=== PATIENT | female | born 1990 | race Caucasian/White ===

== ENCOUNTER → 2016-06-25 | Outpatient (CLI) | payer OTHER ==
--- NOTE | 2016-06-25 13:19 | REP ---
RIGHT HIP: TWO VIEWS. History: Pain in the right hip joint. Findings: AP and frog-leg views of the right hip demonstrate smooth rounded femoral head and intact hip joint space. Periarticular soft tissues are unremarkable. An IUD is noted in the pelvis. Impression: Negative right hip series. Signed by Vel Ruiz MD 06/25/2016 03:59 P
== END | disposition home or self-care (01) ==
LOC: M LRY 11:57
PROVIDERS: ATTEND Family Medicine
DX: M25.551 Pain in right hip (principal)
CPT/HCPCS: 73502; G0463

== ENCOUNTER → 2016-06-28 | Outpatient (CLI) | payer OTHER ==
--- NOTE | 2016-06-28 17:21 | REP ---
MRI of the right hip without contrast 06/28/2016 Indication: Right hip pain; no known injury Comparison: Right hip series 06/25/2016 Findings: Sagittal and coronal T2-weighted images with fat saturation were obtained of the right hip without contrast. Coronal T1 and STIR images were obtained of the hips bilaterally including majority of the pelvis. Findings: The hips are symmetric in appearance bilaterally without acute fracture, subluxation, or dislocation. There is no visualized hip joint effusion. The articular surfaces within the hips are smooth and there are no labral irregularities appreciated. There is no evidence of tendonitis or soft tissue edema at the insertion site on the greater trochanter of the right hip or in the contralateral left hip The visualized portions of the pelvis to include SI joints, the left hip, and the symphysis pubis are intact. Visualized portions of the uterus, adnexa are within normal limits. There are small bilateral ovarian follicles. The - unremarkable in appearance Impression: Negative MRI of the right hip Signed by Shanell Nickerson MD 06/28/2016 05:12 P
== END | disposition home or self-care (01) ==
LOC: M RAD 12:15
PROVIDERS: ATTEND Family Medicine
DX: M25.551 Pain in right hip (principal)

== ENCOUNTER → 2016-10-04 | Outpatient (REF) | payer OTHER | LOC: M SFHCLERA 09:13 | PROVIDERS: ATTEND Family Medicine | DX: N89.8 Other specified noninflammatory disorders of vagina (principal) | CPT/HCPCS: 87491; 87591; G0463 ==

== ENCOUNTER → 2016-10-22 | Outpatient (CLI) | payer OTHER ==
--- NOTE | 2016-10-22 15:28 | REP ---
MRI LUMBAR SPINE WITHOUT CONTRAST: HISTORY: Low back pain radiating into the right hip. Radiculopathy. TECHNIQUE: Sagittal and axial T1 and T2-weighted scans are acquired in the usual fashion with and without fat saturation. Sequences include spin echo, turbo spin-echo, and STIR imaging sequences. MRI FINDINGS: Lumbar vertebral body heights are preserved and alignment is normal. No extra vertebral abnormality is seen. Conus medullaris terminates at L1 and is unremarkable in appearance. Disc spaces are maintained in height and signal intensity. No disc herniation is seen on either side or any level. Pedicles and posterior elements are intact. There is no evidence of spondylolysis or spondylolisthesis. IMPRESSION: Normal MRI study of the lumbar spine without contrast. Signed by Vel Ruiz MD 10/22/2016 03:44 P
== END ==
LOC: M PLARAD 11:14
PROVIDERS: ATTEND Orthopaedic Surgery
DX: M54.16 Radiculopathy, lumbar region (principal)

== ENCOUNTER → 2016-12-06 | Outpatient (REF) | payer OTHER | LOC: M SFHCLERA 18:39 | PROVIDERS: ATTEND Nurse Practitioner Family | DX: R10.9 Unspecified abdominal pain (principal) ==

== ENCOUNTER → 2017-11-05 | Outpatient (REF) | payer OTHER ==
[2017-11-05 17:14] LABS: HEMATOCRIT 39.6 % (36.0-47.0); HEMOGLOBIN 13.4 g/dl (12.0-15.5); MEAN CORPUSCULAR HEMOGLOBIN 31.4 pg (27.0-33.0); MEAN CORPUSCULAR HGB CONC 33.8 g/dl (32.0-36.5); MEAN CORPUSCULAR VOLUME 92.7 fl (80.0-96.0); PLATELET COUNT, AUTOMATED 144 10^3/uL (150-450); RED BLOOD COUNT 4.27 10^6/uL (4.00-5.40); RED CELL DISTRIBUTION WIDTH 12.6 % (11.5-14.5)
[2017-11-05 17:23] LABS: THYROID STIMULATING HORMONE 0.861 uIU/ML (0.358-3.740)
== END ==
LOC: M SFHCLERA 13:51
DX: R68.82 Decreased libido (principal)

== ENCOUNTER 2017-12-05 14:44 | Emergency (ER) | payer OTHER | END 2017-12-05 17:13 | disposition home or self-care (01) | LOC: M ED 14:44 | DX: M25.552 Pain in left hip (principal); M70.72 Other bursitis of hip, left hip; M70.71 Other bursitis of hip, right hip; G43.909 Migraine, unspecified, not intractable, without status migrainosus; F32.9 Major depressive disorder, single episode, unspecified; F41.9 Anxiety disorder, unspecified; Z87.891 Personal history of nicotine dependence; Z88.0 Allergy status to penicillin | CPT/HCPCS: 99283 ==

== ENCOUNTER → 2018-08-11 | Outpatient (REF) | payer OTHER ==
[~2018-08-11] MED LIST: NAPR-885 PO; NORCOTAB PO; PRED20TA PO
== END ==
LOC: M LAB REF 16:36
PROVIDERS: ATTEND Nurse Practitioner Women's Health
DX: Z34.83 Encounter for supervision of other normal pregnancy, third trimester (principal); Z3A.00 Weeks of gestation of pregnancy not specified

== ENCOUNTER → 2019-03-04 | Outpatient (CLI) | payer OTHER ==
[~2019-03-04] MED LIST changes: +HYDR-3715 PO; -NORCOTAB PO
--- NOTE | 2019-03-04 14:10 | REP ---
REASON: Pain. COMPARISON: None. FINDINGS: Three views of the thoracic spine were obtained. The disc spaces are symmetric and relatively well maintained. There is no acute fracture or destructive osseous lesion. Electronically Signed by Stoney Talavera DO 03/04/2019 02:21 P
--- NOTE | 2019-03-04 14:34 | REP ---
REASON: Acute back pain. COMPARISON: None. FINDINGS: Five views of the lumbosacral spine show no acute fracture, dislocation or subluxation. The intervertebral disc spaces are symmetric and well maintained. There is no spondylolisthesis. The pedicles are intact bilaterally and there is no destructive osseous lesions. There is a T shaped radiodensity in the pelvis consistent with an IUD. IMPRESSION: Unremarkable lumbosacral spine series. Electronically Signed by Stoney Talavera DO 03/04/2019 04:29 P
== END ==
LOC: M LRY 13:20
PROVIDERS: ATTEND Physician Assistant
DX: M54.5 Low back pain (principal); M54.6 Pain in thoracic spine
CPT/HCPCS: 72072; 72110; G0463

== ENCOUNTER → 2019-07-23 | Outpatient (REF) | payer OTHER ==
[2019-07-23 20:07] LABS: CHLAMYDIA DNA AMPLIFICATION NEGATIVE (NEGATIVE); GC DNA AMPLIFICATION NEGATIVE (NEGATIVE)
[2019-07-24 11:32] LABS: HIV 1&2 SCREEN CENTAUR NEGATIVE (NEGATIVE)
== END ==
LOC: M SFHCLERA 11:13
PROVIDERS: ATTEND Family Medicine
DX: Z11.3 Encounter for screening for infections with a predominantly sexual mode of transmission (principal)
CPT/HCPCS: 81002; 81025; 86780; 87086; 87389; 87491; 87591; G0463

== ENCOUNTER → 2019-07-27 | Outpatient (CLI) | payer OTHER ==
--- NOTE | 2019-07-27 11:01 | REP ---
Clinical: Pelvic pain. Technique: Transabdominal pelvic ultrasound followed by transvaginal examination for better evaluation of the endometrium and adnexa with color Doppler evaluation of the ovaries. Findings: Bladder is normal and measures 5.6 x 2.1 x 7.9 cm. Heterogeneous anteverted uterus measures 8.8 x 4.4 x 6.0 cm. Small amount of endocervical fluid is appreciated and IUD is identified in central, satisfactory position. Endometrial complex measures 10 mm thickness excluding fluid. Bilateral ovaries are normal in appearance and vascularity without torsion. Right ovary measures 2.8 x 1.6 x 1.8 cm (RI 0.35). Left ovary measures 4.0 x 2.4 x 3.3 cm (RI 0.34) and includes 1.7 cm involuting follicle. No pelvic free fluid or adnexal mass lesion. Impression: Essentially normal pelvic ultrasound as described above. IUD in satisfactory position. Trace endocervical fluid nonspecific. Involuting left ovarian follicle. Electronically Signed by Hussein Villalobos MD 07/27/2019 10:52 A
== END ==
LOC: M LRY 08:29
PROVIDERS: ATTEND Family Medicine
DX: R10.2 Pelvic and perineal pain (principal)

== ENCOUNTER → 2020-05-14 | Outpatient (CLI) | payer OTHER ==
[~2020-05-14] MED LIST changes: +MAXA10TA14 PO; +PROP20TA72 PO
== END ==
LOC: M LABSMTC 10:06
PROVIDERS: ATTEND Anesthesiology
DX: Z01.812 Encounter for preprocedural laboratory examination (principal); Z20.828 Contact with and (suspected) exposure to other viral communicable diseases

== ENCOUNTER 2020-05-18 08:06 | Day surgery (SDC) | payer OTHER ==
[~2020-05-18] VITALS: Ht 157.5 cm; Wt 75.7 kg
[~2020-05-18 08:06] MED LIST changes: +LR 1,000 ML IV SCH
[2020-05-18 08:34] LABS: HEMATOCRIT 40.4 % (36.0-47.0); HEMOGLOBIN 12.9 g/dl (12.0-15.5); MEAN CORPUSCULAR HEMOGLOBIN 30.2 pg (27.0-33.0); MEAN CORPUSCULAR HGB CONC 31.9 g/dl (32.0-36.5); MEAN CORPUSCULAR VOLUME 94.6 fl (80.0-96.0); PLATELET COUNT, AUTOMATED 189 10^3/uL (150-450); RED BLOOD COUNT 4.27 10^6/uL (4.00-5.40); WHITE BLOOD COUNT 4.7 10^3/uL (4.0-10.0)
[2020-05-18] MEDS ORDERED: propofoL 200 MG/20 ML VIAL As Ordered ONE (08:45)
[2020-05-18] MEDS ORDERED: LIDOCAINE 2% 100MG/5ML SDV (FOR ANES.) As Ordered ONE (08:45)
[2020-05-18] MEDS ORDERED: dexameTHASONE 4 MG/ML 1ML VIAL (J1100 PER 1MG) As Ordered ONE (08:45)
[2020-05-18] MEDS ORDERED: ROCURONIUM BROMIDE 50 MG/5 ML VIAL As Ordered ONE (08:45)
[2020-05-18] MEDS ORDERED: ONDANSETRON 4MG/2ML VIAL As Ordered ONE ×2 (08:45→12:46)
[2020-05-18] MEDS ORDERED: MIDAZOLAM INJ 2MG/2ML VIAL (J2250 PER 1MG) As Ordered ONE (08:46)
[2020-05-18] MEDS ORDERED: fentaNYL 100 MCG/2 ML INJECTION (J3010) As Ordered ONE (08:46)
[2020-05-18] MEDS ORDERED: BUPIVACAINE HCL 0.25% 10ML VIAL As Ordered ONE (09:01)
[2020-05-18 09:06] LABS: HCG, SERUM QUALITATIVE NEGATIVE (NEGATIVE)
[2020-05-18] MEDS ORDERED: SUGAMMADEX SODIUM 500 MG/5 ML VIAL (BRIDION) As Ordered ONE (10:01)
[2020-05-18] MEDS ORDERED: ACETAMINOPHEN 1000MG 100ML IV BTL (OFIRMEV) (J0131 PER 10MG) As Ordered ONE (10:01)
[2020-05-18] MEDS ORDERED: HYDROmorphone HCL 2 MG/ML 1ML VIAL (J1170) As Ordered ONE (10:01)
[2020-05-18] MEDS ORDERED: KETOROLAC 60MG 2ML VIAL As Ordered ONE (10:14)
--- NOTE | 2020-05-18 11:00 | ROOPDOC ---
[facility] Report Of Operation Report of Operation Date of procedure: 05/18/2020 Preoperative diagnosis: Satisfied parity. Postoperative diagnosis: Same Procedure: Laparoscopic bilateral salpingectomy, IUD removal Anesthesia: Gen. endotracheal Estimated blood loss 5 mL IV fluids replaced 600 mL lactated Ringer's Drains: In and out catheter 100 mL of urine Complications: None Preoperative antibiotics: None indicated Specimens: Bilateral fallopian tubes Intraoperative findings: Normal size, shape, contour of the uterus. Normal adnexa/ovaries bilaterally. Minimal pelvic adhesions Procedure: The patient was counseled and consented on the risks, benefits, indications, and alternatives of the procedure. Informed consent was obtained. She was taken to the operating room with an IV running. She was placed on the operating table in the dorsal supine position. Gen. anesthesia was administered and the airway was secured without any difficulty. A timeout was performed per protocol. She was prepared and draped in the normal sterile fashion. Attention was turned to the pelvis. The bladder was drained with in and out sterile catheter. A speculum was placed into the vagina with good visualization of the cervix. The IUD was removed with Kennedi forceps without any difficulty, the IUD was intact. A single-tooth tenaculum was placed on the anterior lip of the cervix and downward traction was applied. The cervix was sequentially dilated with Gaetano dilators up to a #16. A ZUMI uterine manipulator was placed without any difficulty. The single-tooth tenaculum was removed. The tenaculum sites were noted to be hemostatic. A sterile glove switch was performed. Attention was turned to the abdomen. A 5mm umbilical incision was made with the 11 blade. Through this incision, a Veress needle was placed into the intraperitoneal cavity. Intraperitoneal placement was confirmed with ease of flow of normal saline, a positive drop test and no return on aspiration. The opening pressure was 2 mmHg. The abdomen was insufflated with 2 L of CO2. The Veress needle was removed. A 5 mm laparoscopic trocar was placed under direct visualization without any difficulty, and intraperitoneal placement was confirmed. No incidental bleeding or injury was evident. The patient was placed in [facility]. 2 additional laparoscopic port sites were placed through 5 mm incisions in the lower left quadrant. Each trocar/cannula was placed under direct visualization without any difficulty, incidental bleeding or injury. Attention was turned to the right fallopian tube. The right fallopian tube was followed out to the fimbriated end, grasped and elevated. The underlying m esosalpinx was sequentially clamped, coagulated and transected, until the level of the cornu was reached. At this level, the fallopian tube was clamped, coagulated and transected, thus amputating the fallopian tube. The fallopian tube was brought through the cannula without any difficulty and sent to pathology for permanent section. Attention was turned to the left fallopian tube. The left fallopian tube was followed out to the fimbriated end, grasped and elevated. The underlying mesosalpinx was sequentially clamped, coagulated and transected, until the level of the cornu was reached. At this level the fallopian tube was clamped, coagulated and transected, thus amputating the fallopian tube. The fallopian tube was brought to the cannula without any difficulty and sent to pathology for permanent section. Both right and left surgical sites were noted to be completely hemostatic. The gas was released from the abdomen. The patient was taken out of Trendelenburg position. The cannulas were removed. The skin incisions were closed with 4-0 Monocryl in subcuticular fashion and reinforced with Dermabond. The uterine manipulator was removed, the vagina was noted to be clear of any sponge or instrument. Sponge, needle and instrument counts were correct per protocol. The patient tolerated the entire procedure very well. She was transferred to the PACU in good and stable condition. DO IRAM Arreguin JONATHAN R. DO May 18, 2020 11:00
[2020-05-18] MEDS ORDERED: PERC5TAB12 PO (11:01)
[2020-05-18] MEDS ORDERED: IBUP80TA PO (11:03)
[2020-05-18] MEDS ORDERED: LR 1,000 ML IV SCH ×2 (11:30)
[2020-05-18] MEDS ORDERED: fentaNYL 100 MCG/2 ML INJECTION (J3010) IV PRN (11:30)
[2020-05-18] MEDS ORDERED: oxyCODONE 5MG TAB PO PRN (11:30)
[2020-05-18] MEDS ORDERED: ONDANSETRON 4MG/2ML VIAL IV PRN (11:30)
[2020-05-18 13:55] VITALS: BP 124/85
== END 2020-05-18 14:47 | disposition home or self-care (01) ==
LOC: M SDC 08:06
PROVIDERS: ATTEND Obstetrics & Gynecology
DX: Z30.2 Encounter for sterilization (principal); K21.9 Gastro-esophageal reflux disease without esophagitis; Z79.899 Other long term (current) drug therapy; Z88.0 Allergy status to penicillin; K66.0 Peritoneal adhesions (postprocedural) (postinfection)
CPT/HCPCS: 36415; 58301; 58661; 84703; 85027; 86850; 86900; 86901; 88302; J0131; J1100; J1170; J1885; J2250; J2405; J3010

== ENCOUNTER → 2020-05-30 | Outpatient (CLI) | payer SELFPAY ==
[~2020-05-30] MED LIST changes: +IBUP80TA PO; -LR 1,000 ML IV SCH; +PERC5TAB12 PO
== END ==
LOC: M LABSMTC 13:53
PROVIDERS: ATTEND Pediatrics
DX: Z20.828 Contact with and (suspected) exposure to other viral communicable diseases (principal)

== ENCOUNTER → 2020-07-13 | Outpatient (CLI) | payer OTHER ==
--- NOTE | 2020-07-14 05:43 | REP ---
INDICATION: R10.2 PELVIC PAIN COMPARISON: 07/27/2019 TECHNIQUE: Transabdominal pelvic ultrasound with color flow evaluation of the ovaries. FINDINGS: Bladder is unremarkable and measures approximately 5.2 x 3.5 x 5.0 cm. Normal anteverted uterus measures 9.6 x 4.1 x 5.8 cm. The endometrial complex measures 8.1 mm thickness. No discrete uterine or endometrial abnormalities are appreciated. Bilateral ovaries are relatively normal in appearance and color without evidence for torsion. Right ovary measures 3.4 x 2.0 x 1.9 cm and includes 1.8 x 1.2 x 1.5 cm complex likely physiologic involuting cyst/follicle; left ovary measures 2.9 x 1.0 x 2.5 cm and appears normal. No pelvic fluid or adnexal mass lesion. IMPRESSION: Presumed involuting right ovarian follicle. Otherwise normal pelvic ultrasound. <Electronically signed by Hussein Villalobos > 07/14/20 [id number]
== END ==
LOC: M WHC 11:01
PROVIDERS: ATTEND Obstetrics & Gynecology
DX: R10.2 Pelvic and perineal pain (principal)

== ENCOUNTER → 2020-08-24 | Outpatient (CLI) | payer OTHER | LOC: M LRY 11:02 | PROVIDERS: ATTEND Family Medicine | DX: Z53.9 Procedure and treatment not carried out, unspecified reason (principal) ==

== ENCOUNTER → 2020-11-08 | Outpatient (REF) | payer OTHER ==
[2020-11-22 10:54] LABS: GC DNA AMPLIFICATION NEGATIVE (NEGATIVE)
== END ==
LOC: M SFHCWAGY 16:56
PROVIDERS: ATTEND Obstetrics & Gynecology
DX: Z12.4 Encounter for screening for malignant neoplasm of cervix (principal); Z11.3 Encounter for screening for infections with a predominantly sexual mode of transmission
CPT/HCPCS: 87661; G0123; G0463